=== PATIENT | female | born 1990 ===

== ENCOUNTER 2018-09-30 21:17 | Emergency (ER) | payer SELFPAY ==
[2018-09-30 21:44] VITALS: O2SAT 100
[2018-09-30] MEDS ORDERED: Sodium Chloride 0.9% 1,000 ML IV STA (21:59)
--- NOTE | 2018-09-30 22:02 | ED PDOC ---
HPI: General Adult Time Seen by Provider: 09/30/18 21:47 Chief Complaint (Nursing): GI Problem Chief Complaint (Provider): vomiting History Per: Patient History/Exam Limitations: no limitations Onset/Duration Of Symptoms: Days (2), Waxing/Waning Additional Complaint(s): 28 y/o female, approximately 12 weeks gestation, presents for evaluation of vomiting x 2 days. Associated headache. Denies fever, cough, congestion, chest pain, shortness of breath, palpitations, abdominal pain, vaginal ble eding/discharge, urinary symptoms. Past Medical History Reviewed: Historical Data, Nursing Documentation, Vital Signs Vital Signs: Last Vital Signs Temp 98.4 F 09/30/18 21:43 Pulse 94 H 09/30/18 21:43 Resp 16 09/30/18 21:43 BP 135/86 09/30/18 21:43 Pulse Ox 100 09/30/18 21:43 - Medical History PMH: No Chronic Diseases - Surgical History Surgical History: No Surg Hx - Family History Family History: States: No Known Family Hx - Living Arrangements Living Arrangements: With Family - Home Medications Home Medications: Ambulatory Orders Medication Instructions Recorded Ondansetron [Zofran] 4 mg PO Q8H PRN #10 tab 09/30/18 - Allergies Allergies/Adverse Reactions: Allergies Allergy/AdvReac Type Severity Reaction Status Date / Time No Known Allergies Allergy Verified 09/30/18 21:45 Review of Systems ROS Statement: Except As Marked, All Systems Reviewed And Found Negative Gastrointestinal: Positive for: Nausea, Vomiting Neurological: Positive for: Headache Physical Exam - Reviewed Nursing Documentation Reviewed: Yes Vital Signs Reviewed: Yes - Physical Exam Appears: Positive for: Well, Non-toxic, No Acute Distress Head Exam: Positive for: ATRAUMATIC, NORMAL INSPECTION, NORMOCEPHALIC Skin: Positive for: Normal Color Eye Exam: Positive for: Normal appearance ENT: Positive for: Normal ENT Inspection Cardiovascular/Chest: Positive for: Regular Rate, Rhythm Respiratory: Positive for: Normal Breath Sounds Gastrointestinal/Abdominal: Positive for: Normal Exam Back: Positive for: Normal Inspection Extremity: Positive for: Normal ROM Neurologic/Psych: Positive for: Alert, Oriented (x3) - Laboratory Results Result Diagrams: 09/30/18 22:10 09/30/18 22:10 - ECG O2 Sat by Pulse Oximetry: 100 - Progress ED Course And Treament: -upreg -udip -cbc -cmp -beta hcg -urinalysis -IV NS bolus -IV reglan On re-eval, patient states she is feeling better. Tolerating PO Patient educated on findings, discharged with rx Zofran ADvised fluids, basic diet Follow up with Pool Attendant within 2-3 days Return precautions given Disposition - Clinical Impression Clinical Impression: Nausea and vomiting during - Patient ED Disposition Is Patient to be Admitted: No Counseled Patient/Family Regarding: Studies Performed, Diagnosis, Need For Followup, Rx Given - Disposition Disposition: Routine/Home Disposition Time: 23:37 Condition: IMPROVED Prescriptions: Ondansetron [Zofran] 4 mg PO Q8H PRN #10 tab PRN Reason: Nausea/Vomiting Instructions: Nausea and Vomiting of (DC)
[2018-09-30 22:20] LABS: BASO % 0.4 % (0.0-2.0); EOS % 0.4 % (0.0-4.0); HEMOGLOBIN 13.2 g/dL (12.0-16.0); MEAN CELL VOLUME 82.9 fl (81.0-99.0); MEAN CORPUSCULAR HEMOGLOBIN 27.5 pg (27.0-31.0); MEAN CORPUSCULAR HGB CONC 33.1 g/dL (33.0-37.0); MEAN PLATELET VOLUME 7.7 fl (7.2-11.7); MONO # 0.5 K/uL (0.0-0.8); MONO % 5.4 % (0.0-10.0); NEUT % 72.8 % (50.0-75.0); RBC 4.82 Mil/uL (3.80-5.20); RED CELL DISTRIBUTION WIDTH 14.8 % (11.5-14.5); WHITE BLOOD COUNT 9.6 K/uL (4.8-10.8)
[2018-09-30 22:22] LABS: SQUAMOUS EPITHIAL 29 /hpf (0-5); URINE BACTERIA RARE (<OCC); URINE BILIRUBIN NEGATIVE (NEGATIVE); URINE BLOOD NEGATIVE (NEGATIVE); URINE CLARITY CLOUDY (Clear); URINE GLUCOSE (UA) NEG (NEGATIVE); URINE LEUKOCYTE ESTERASE TRACE Leu/uL (Negative); URINE PROTEIN 100 mg/dL (NEGATIVE); URINE UROBILINOGEN 0.2-1.0 mg/dL (0.2-1.0)
[2018-09-30 22:28] LABS: URINE COLOR YELLOW (YELLOW)
[2018-09-30 22:32] LABS: ALB/GLOB RATIO 1.2 (1.0-2.1); ALT/SGPT 22 U/L (9-52); AST/SGOT 16 U/L (14-36); BLOOD UREA NITROGEN 6 mg/dl (7-17); GFR NON-AFRICAN AMERICAN > 60
[2018-09-30 23:05] VITALS: BP 131/75; PULSE 81; RESP 15; TEMP 98.3
== END 2018-09-30 23:48 | disposition home or self-care (01) ==
LOC: H.ER 21:17
DX: O21.0 Mild hyperemesis gravidarum (principal); Z3A.12 12 weeks gestation of pregnancy
CPT/HCPCS: 80053; 81003; 81025; 84702; 85025; 87086; 99284; J2765; J7030